=== PATIENT | male | born 1945 | race Caucasian/White ===

== ENCOUNTER 2016-12-12 13:15 | Emergency (ER) | payer OTHER ==
[~2016-12-12] VITALS: Ht 165.1 cm; Wt 85.0 kg
[2016-12-12 16:00] VITALS: BP 142/94
== END 2016-12-12 16:00 | disposition home or self-care (01) ==
LOC: EME 13:15
DX: S16.1XXA Strain of muscle, fascia and tendon at neck level, initial encounter (principal); H53.8 Other visual disturbances; V49.50XA Passenger injured in collision with unspecified motor vehicles in traffic accident, initial encounter; I10 Essential (primary) hypertension; E78.5 Hyperlipidemia, unspecified; K21.9 Gastro-esophageal reflux disease without esophagitis; Z87.442 Personal history of urinary calculi; Z72.0 Tobacco use
CPT/HCPCS: 70450; 72125; 99281; 99284